=== PATIENT | male | born 1970 | race Caucasian/White ===

== ENCOUNTER 2018-11-30 11:35 | Emergency (ER) | payer OTHER ==
[~2018-11-30] VITALS: Ht 180.3 cm; Wt 98.9 kg
[2018-11-30] MEDS ORDERED: VOLTAREN GEL 1100 G1 TOP (13:04)
[2018-11-30] MEDS ORDERED: LIDODERM1 EACH TRANSDERM (13:04)
[2018-11-30 13:21] VITALS: BP 140/94
== END 2018-11-30 13:22 | disposition home or self-care (01) ==
LOC: M.ERS 11:35
DX: M51.36 Other intervertebral disc degeneration, lumbar region (principal); Q76.0 Spina bifida occulta; Z91.018 Allergy to other foods

== ENCOUNTER 2019-01-14 15:27 | Emergency (ER) | payer OTHER ==
[~2019-01-14] VITALS: Ht 180.3 cm; Wt 101.2 kg
[~2019-01-14 15:27] MED LIST: LIDODERM1 EACH TRANSDERM; VOLTAREN GEL 1100 G1 TOP
[2019-01-14] MEDS ORDERED: IBUPROFEN 200200 M1 PO (15:38)
[2019-01-14 16:17] LABS: ABSOLUTE BASOPHILS 0.1 thou/uL (0.0-0.2); ABSOLUTE EOSINOPHILS 0.1 thou/uL (0.0-0.7); ABSOLUTE LYMPHOCYTES 2.7 thou/uL (0.8-5.3); ABSOLUTE MONOCYTES 0.5 thou/uL (0.0-1.2); ABSOLUTE NEUTROPHILS 3.7 thou/uL (1.6-8.1); BASOPHILS 0.9 %; EOSINOPHILS 1.5 %; HEMATOCRIT 44.9 % (42.0-52.0); HEMOGLOBIN 15.8 gm/dL (14.0-18.0); MCHC 35.1 g/dL (28.0-37.0); MCV 91.2 fL (80.0-100.0); MONOCYTES 7.7 %; MPV 8.4 fl. (7.2-11.1); NUCLEATED RBCS 0 /100WBC; PLATELET COUNT* 228 thou/uL (150-400); POLYS 51.9 %; RBC 4.92 mil/uL (4.50-6.00); WBC 7.1 thou/uL (4.0-11.0)
[2019-01-14 16:25] LABS: ANION GAP 8 mmol/L (7-16); BUN 9 mg/dL (7-18); CALCIUM 8.5 mg/dL (8.5-10.1); CHLORIDE 104 mmol/L (98-107); CO2 26 mmol/L (21-32); GLUCOSE 113 mg/dL (70-99); POTASSIUM 3.9 mmol/L (3.5-5.1); SODIUM 138 mmol/L (136-145)
[2019-01-14 16:34] LABS: ALBUMIN 4.1 g/dL (3.4-5.0); ALKALINE PHOSPHATASE 85 U/L (46-116); SGOT 25 U/L (15-37); SGPT 44 U/L (30-65); TOTAL BILIRUBIN 0.9 mg/dL (<0.1-1.0); TOTAL PROTEIN 7.4 g/dL (6.4-8.2); TROPONIN-I LEVEL <0.06 ng/mL (<0.06)
[2019-01-14] MEDS ORDERED: TORADOL 10 MG T10 MG PO (17:37)
[2019-01-14 17:49] VITALS: BP 129/85
[2019-01-14 18:02] LABS: URINE BILIRUBIN NEGATIVE (Negative); URINE BLOOD NEGATIVE (Negative); URINE CLARITY CLEAR; URINE COLOR YELLOW; URINE GLUCOSE-RANDOM NEGATIVE (Negative); URINE KETONES NEGATIVE (Negative); URINE LEUKOCYTES-REFLEX NEGATIVE (Negative); URINE NITRITE-REFLEX NEGATIVE (Negative); URINE PROTEIN NEGATIVE (Negative); URINE SPECIFIC GRAVITY <= 1.005 (1.005-1.030)
== END 2019-01-14 18:14 | disposition home or self-care (01) ==
LOC: M.ERS 15:27
PROVIDERS: Physician Assistant
DX: R10.32 Left lower quadrant pain (principal); Z90.49 Acquired absence of other specified parts of digestive tract; Z91.048 Other nonmedicinal substance allergy status

== ENCOUNTER 2019-03-05 13:08 | Emergency (ER) | payer OTHER ==
[~2019-03-05] VITALS: Ht 180.3 cm; Wt 100.7 kg
[~2019-03-05 13:08] MED LIST changes: +IBUPROFEN 200200 M1 PO; +TORADOL 10 MG T10 MG PO
[2019-03-05] MEDS ORDERED: BACLOFEN 10MG T10 MG PO (13:17)
[2019-03-05] MEDS ORDERED: MOBIC7.5 MG PO (13:17)
[2019-03-05] MEDS ORDERED: MEDROLDOSEPACK PO (13:40)
[2019-03-05] MEDS ORDERED: NORCO 5-325 TA1 EAC1 PO (13:40)
[2019-03-05] MEDS ORDERED: FLEXERIL PO (13:40)
[2019-03-05 13:56] VITALS: BP 129/81
== END 2019-03-05 13:56 | disposition home or self-care (01) ==
LOC: M.ERS 13:08
DX: M54.5 Low back pain (principal); Z88.8 Allergy status to other drugs, medicaments and biological substances; Z90.49 Acquired absence of other specified parts of digestive tract

== ENCOUNTER 2019-03-12 15:15 | Emergency (ER) | payer OTHER ==
[~2019-03-12] VITALS: Ht 180.3 cm; Wt 100.7 kg
[~2019-03-12 15:15] MED LIST changes: +BACLOFEN 10MG T10 MG PO; +FLEXERIL PO; +MEDROLDOSEPACK PO; +MOBIC7.5 MG PO; +NORCO 5-325 TA1 EAC1 PO
[2019-03-12 15:42] LABS: URINE BILIRUBIN NEGATIVE (Negative); URINE BLOOD 1+ (Negative); URINE CLARITY CLEAR; URINE COLOR YELLOW; URINE GLUCOSE-RANDOM NEGATIVE (Negative); URINE KETONES NEGATIVE (Negative); URINE LEUKOCYTES-REFLEX NEGATIVE (Negative); URINE NITRITE-REFLEX NEGATIVE (Negative); URINE PROTEIN NEGATIVE (Negative)
[2019-03-12 15:51] LABS: BACTERIA-REFLEX 1-9 Few /HPF (None Seen); CASTS None Seen /LPF (None Seen); CRYSTALS None Seen /LPF (None Seen); MUCUS 0-3 Light strn/LPF (None Seen); SQUAMOUS NONE SEEN /LPF (0-3); URINE RBC 0-2 Rare /HPF (0-2); URINE WBC-REFLEX 0-5 Rare /HPF (0-5)
[2019-03-12 15:53] LABS: HEMATOCRIT 42.7 % (42.0-52.0); HEMOGLOBIN 14.7 gm/dL (14.0-18.0); MCH 31.7 pg (26.0-34.0); NUCLEATED RBCS 0 /100WBC
[2019-03-12 15:55] LABS: MCHC 34.5 g/dL (28.0-37.0); MCV 91.9 fL (80.0-100.0); PLATELET COUNT* 248 thou/uL (150-400); RBC 4.64 mil/uL (4.50-6.00); RDW-CV 13.7 % (10.5-14.5); WBC 11.4 thou/uL (4.0-11.0)
[2019-03-12 16:00] LABS: CALCIUM 9.1 mg/dL (8.5-10.1); POTASSIUM 3.4 mmol/L (3.5-5.1)
[2019-03-12 16:18] LABS: ABSOLUTE EOSINOPHILS 0.2 thou/uL (0.0-0.7); ABSOLUTE LYMPHOCYTES 5.1 thou/uL (0.8-5.3); ABSOLUTE MONOCYTES 0.8 thou/uL (0.0-1.2); ABSOLUTE NEUTROPHILS 5.2 thou/uL (1.6-8.1); PLATELET ESTIMATE ADEQUATE
[2019-03-12] MEDS ORDERED: ROBAXIN 750 MG750 MG PO (17:19)
[2019-03-12] MEDS ORDERED: NORCO 5-325 TA1 EAC1 PO (17:20)
[2019-03-12] MEDS ORDERED: LIDODERM1 EACH TOP (17:20)
[2019-03-12 17:39] VITALS: BP 121/77
== END 2019-03-12 17:41 | disposition home or self-care (01) ==
LOC: M.ERS 15:15
PROVIDERS: Nurse Practitioner
DX: S39.012A Strain of muscle, fascia and tendon of lower back, initial encounter (principal); Z90.49 Acquired absence of other specified parts of digestive tract; Z88.8 Allergy status to other drugs, medicaments and biological substances; X58.XXXA Exposure to other specified factors, initial encounter; Y93.89 Activity, other specified; Y92.89 Other specified places as the place of occurrence of the external cause; Y99.8 Other external cause status

== ENCOUNTER 2020-03-15 06:49 | Emergency (ER) | payer OTHER ==
[~2020-03-15] VITALS: Ht 180.3 cm; Wt 107.0 kg
[~2020-03-15 06:49] MED LIST changes: +LIDODERM1 EACH TOP; +ROBAXIN 750 MG750 MG PO
[2020-03-15] MEDS ORDERED: FLEXERIL PO (07:29)
[2020-03-15] MEDS ORDERED: MOBIC15 MG PO (07:29)
[2020-03-15] MEDS ORDERED: NORCO 5-325 TA1 EAC2 PO (07:29)
[2020-03-15 07:39] VITALS: BP 145/90
== END 2020-03-15 07:39 | disposition home or self-care (01) ==
LOC: M.ERS 06:49
DX: M54.5 Low back pain (principal); Z90.49 Acquired absence of other specified parts of digestive tract; Z98.890 Other specified postprocedural states; Z88.8 Allergy status to other drugs, medicaments and biological substances; X50.1XXA Overexertion from prolonged static or awkward postures, initial encounter; Y93.89 Activity, other specified; Y92.89 Other specified places as the place of occurrence of the external cause; Y99.8 Other external cause status

== ENCOUNTER 2021-06-22 07:05 | Emergency (ER) | payer OTHER ==
[~2021-06-22] VITALS: Ht 180.3 cm; Wt 107.0 kg
[~2021-06-22 07:05] MED LIST changes: +MOBIC15 MG PO; +NORCO 5-325 TA1 EAC2 PO
[2021-06-22 08:17] VITALS: BP 154/87
== END 2021-06-22 08:18 | disposition home or self-care (01) ==
LOC: M.ERS 07:05
DX: J02.9 Acute pharyngitis, unspecified (principal); Z20.822 Contact with and (suspected) exposure to COVID-19; Z90.49 Acquired absence of other specified parts of digestive tract; Z91.09 Other allergy status, other than to drugs and biological substances